=== PATIENT | female | born 1965 | race African-American/Black ===

== ENCOUNTER 2016-11-27 08:00 | Emergency (ER) | payer OTHER ==
[~2016-11-27] VITALS: Ht 167.6 cm; Wt 46.7 kg
[~2016-11-27 08:00] MED LIST: ALEVE220 MG PO; BENADRYL ALLERG25 MG PO; CELEXA10 MG PO; CELEXA20 MG PO; DULCOLAX5 MG PO; GABAPENTIN100 MG PO; HYDROCODON-ACE1 EAC7 PO; HYDROCORTISON28.4 GM TP; MEDROXYPROGESTE10 MG PO; MELOXICAM15 MG PO; MELOXICAM7.5 MG PO; MOBIC15 MG PO; MOBIC7.5 MG PO; MOTRIN600 MG PO; TRAMADOL HCL50 MG PO; TYLENOL WITH C1 EACH PO; TYLENOL WITH CODEINE; ULTRAM50 MG PO; VALIUM5 MG PO; VITAMIN D250000 UNIT PO; VITAMIN D5000 UNI1 PO
[2016-11-27 11:13] LABS: ADD MIUA? YES; BILIRUBIN NEGATIVE; BLOOD NEGATIVE; COLOR YELLOW ((YELLOW)); GLUCOSE (STRIP) NEGATIVE; KETONES 5; LEUKOCYTES NEGATIVE; NITRITE NEGATIVE; PROTEIN (STRIP) 30; SPECIFIC GRAVITY 1.027 (1.000-1.030)
[2016-11-27 11:21] LABS: BACTERIA RARE /HPF; EPITHELIAL CELLS 1+ /HPF; MUCUS TRACE /LPF; UCUL ADDED? NO; WHITE BLOOD CELLS 0-5 /HPF (0-5)
[2016-11-27 12:16] LABS: EOSINOPHIL (%) 0.2 % (0-5); IMMATURE GRANULOCYTE (%) 0.3 % (0.0-0.7); INSTRUMENT ABS NEUTROPHIL CT 4.3 K/uL; LYMPHOCYTE COUNT 1.5 K/uL (1.0-2.8); MCH 31.4 PG (29.0-34.0); MCHC 33.6 G/DL (30.0-36.0); MCV 93.5 FL (83-99); MEAN PLAT.VOLUME 11.2 uM^3 (9.5-12.4); MONOCYTE (%) 4.4 % (3-12); MONOCYTE COUNT 0.3 K/uL (0-0.8); NEUTROPHIL (%) 69.8 % (45-76); NEUTROPHIL COUNT 4.3 K/uL (1.8-6.4); PLATELET COUNT 154 K/uL (156-360); RBC DIS.WIDTH-CV 13.3 % (11.8-14.6); RBC DIS.WIDTH-SD 45.7 % (39-53); RED BLOOD COUNT 4.17 M/uL (3.80-5.20); WHITE BLOOD COUNT 6.1 K/uL (4.1-10.2)
[2016-11-27 12:28] VITALS: BP 124/81
[2016-11-27 12:35] LABS: CHLORIDE 107 mEq/L (99-109); POTASSIUM 3.6 mEq/L (3.7-5.4); SODIUM 139 mEq/L (136-147)
[2016-11-27 12:38] LABS: GLUCOSE 101 mg/dL (70-99)
[2016-11-27 12:39] LABS: ANION GAP 9 MEQ/L (2-14)
[2016-11-27 12:40] LABS: TOTAL BILIRUBIN 0.5 mg/dL (0.0-1.0)
[2016-11-27 12:41] LABS: ALKALINE PHOSPHATASE 75 IU/L (3-129); GFR ESTIMATE (CALCULATED) > 59 mL/min/
[2016-11-27 12:42] LABS: UREA NITROGEN (BUN) 15 mg/dL (9-23)
[2016-11-27 12:50] LABS: QUANTITATIVE HCG < 4.0 MIU/ML
[2016-11-27] MEDS ORDERED: LIDODERM 5% P1 PATCH TD (12:55)
[2016-11-27] MEDS ORDERED: VALIUM2 MG PO (12:55)
[2016-11-27] MEDS ORDERED: NAPROXEN500 MG PO (12:55)
== END 2016-11-27 13:12 | disposition home or self-care (01) ==
LOC: EME 08:00
PROVIDERS: Physician Assistant
DX: S29.012A Strain of muscle and tendon of back wall of thorax, initial encounter (principal); X50.0XXA Overexertion from strenuous movement or load, initial encounter; X50.3XXA Overexertion from repetitive movements, initial encounter; Y93.F2 Activity, caregiving, lifting
CPT/HCPCS: 74176; 80053; 81003; 84702; 85025; 99281; 99284; J1885; J3010; J7120

== ENCOUNTER 2017-01-30 11:15 | Emergency (ER) | payer OTHER ==
[~2017-01-30] VITALS: Ht 167.6 cm; Wt 46.3 kg
[~2017-01-30 11:15] MED LIST changes: +LIDODERM 5% P1 PATCH TD; +NAPROXEN500 MG PO; +VALIUM2 MG PO
[2017-01-30 13:41] VITALS: BP 135/75
== END 2017-01-30 13:41 | disposition home or self-care (01) ==
LOC: EME 11:15
DX: S93.602A Unspecified sprain of left foot, initial encounter (principal); M25.572 Pain in left ankle and joints of left foot; X50.1XXA Overexertion from prolonged static or awkward postures, initial encounter; F17.200 Nicotine dependence, unspecified, uncomplicated
CPT/HCPCS: 73630; 99281; 99283

== ENCOUNTER → 2017-12-06 | Outpatient (CLI) | payer OTHER ==
[~2017-12-06] VITALS: Ht 167.6 cm; Wt 47.6 kg
[~2017-12-06] MED LIST changes: +MACRODANTIN100 MG PO
== END | disposition home or self-care (01) ==
LOC: AMB 11:00
PROC: 0DBN8ZX Excision of Sigmoid Colon, Via Natural or Artificial Opening Endoscopic, Diagnostic (ICD-10-PCS; principal; 2017-12-06)
DX: D12.5 Benign neoplasm of sigmoid colon (principal); D64.9 Anemia, unspecified; Z91.012 Allergy to eggs; Z88.0 Allergy status to penicillin; Z91.018 Allergy to other foods; F17.200 Nicotine dependence, unspecified, uncomplicated
CPT/HCPCS: 88305; J2250

== ENCOUNTER 2017-12-07 08:11 | Emergency (ER) | payer OTHER ==
[~2017-12-07] VITALS: Ht 167.6 cm; Wt 44.0 kg
[~2017-12-07 08:11] MED LIST changes: -MACRODANTIN100 MG PO
[2017-12-07 09:32] LABS: HEMATOCRIT 35.1 % (36.0-46.0); HEMOGLOBIN 12.5 G/DL (11.9-15.5); MCH 33.4 PG (29.0-34.0); MCHC 35.6 G/DL (30.0-36.0); MCV 93.9 FL (83-99); RBC DIS.WIDTH-CV 13.4 % (11.8-14.6); RBC DIS.WIDTH-SD 46.5 % (39-53); RED BLOOD COUNT 3.74 M/uL (3.80-5.20); WHITE BLOOD COUNT 7.2 K/uL (4.1-10.2)
[2017-12-07 09:42] LABS: CHLORIDE 108 mEq/L (99-109); POTASSIUM 3.6 mEq/L (3.7-5.4); SODIUM 141 mEq/L (136-147)
[2017-12-07 09:43] LABS: GLUCOSE 112 mg/dL (70-99)
[2017-12-07 09:47] LABS: CREATININE 0.8 mg/dL (0.6-1.3); GFR ESTIMATE (CALCULATED) > 59 mL/min/
[2017-12-07 09:48] LABS: UREA NITROGEN (BUN) 15 mg/dL (9-23)
[2017-12-07 09:57] LABS: TROP-I INTERPRETATION NEGATIVE; TROPONIN-I < 0.01 ng/mL (0.0-0.30)
[2017-12-07 10:10] LABS: PLAT.SUFFICIENCY DECREASED; PLATELET COUNT 133 K/uL (156-360)
[2017-12-07 11:08] LABS: APPEARANCE CLOUDY ((CLEAR)); BILIRUBIN NEGATIVE; BLOOD SMALL; COLOR YELLOW ((YELLOW)); GLUCOSE (STRIP) NEGATIVE; KETONES 5; LEUKOCYTES LARGE; NITRITE POSITIVE; PROTEIN (STRIP) 30; SPECIFIC GRAVITY 1.024 (1.000-1.030); UROBILINOGEN 0.2 MG/DL (0.2-1.0)
[2017-12-07 11:25] LABS: BACTERIA 2+ /HPF; EPITHELIAL CELLS 1+ /HPF; MUCUS NONE SEEN /LPF; RED BLOOD CELLS RARE /HPF (0-5); UCUL ADDED? YES; WHITE BLOOD CELLS 30-40 /HPF (0-5)
[2017-12-07] MEDS ORDERED: MACRODANTIN100 MG PO (11:47)
[2017-12-07 12:30] VITALS: BP 120/78
== END 2017-12-07 12:48 | disposition home or self-care (01) ==
LOC: EME 08:11
PROVIDERS: Nurse Practitioner Family
DX: N39.0 Urinary tract infection, site not specified (principal); M54.9 Dorsalgia, unspecified; F41.9 Anxiety disorder, unspecified; Z88.0 Allergy status to penicillin; F17.200 Nicotine dependence, unspecified, uncomplicated
CPT/HCPCS: 71046; 80048; 81003; 84484; 85027; 87077; 87086; 87186; 93005; 99281; 99284; J1885